=== PATIENT | female | born 1950 | race Caucasian/White ===

== ENCOUNTER 2017-03-16 06:20 | Day surgery (SDC) | payer OTHER, MEDICARE ==
[2017-03-08 17:58] VITALS: BMI 17.5
[2017-03-16] MEDS: CYCLOPENTOLATE 2% OPHTH SOLN 2 ML BOTTLE ONE ×3 (06:50→07:00)
[2017-03-16] MEDS: TROPICAMIDE 1% OPHTH SOLN 15 ML BOTTLE ONE ×3 (06:50→07:00)
[2017-03-16] MEDS: PHENYLEPHRINE 2.5% OPHTH SOLN 15 ML BOTTLE ONE ×3 (06:50→07:00)
[2017-03-16] MEDS: CIPROFLOXACIN 0.3% EYE DROPS 5 ML BOTTLE ONE ×3 (06:50→07:00)
[2017-03-16] MEDS ORDERED: BSS (NA/CA/MG/K) BALANCED SALT SOLUTION OPHTH SOLN 15 ML BOTTLE ONE (07:21)
[2017-03-16] MEDS ORDERED: TETRACAINE 0.5% OPHTH SOLN 2 ML BOTTLE ONE (07:21)
[2017-03-16] MEDS ORDERED: ACETYLCHOLINE 1:100 INTRA-OCUL 20 MG/2 ML KIT ONE (07:22)
[2017-03-16] MEDS ORDERED: CARBACHOL 0.01% INTRA-OCULAR 1.5 ML VIAL ONE (07:22)
[2017-03-16] MEDS ORDERED: LIDOCAINE HCL 2% JELLY 10 ML CARTRIDGE ONE (07:23)
[2017-03-16] MEDS ORDERED: NEO/POLYMYX B SULF/DEXAMETH OPHTHALMIC 5ML BOTTLE ONE (07:23)
[2017-03-16] MEDS ORDERED: LIDOCAINE 1% P/F 10 MG/ML VIAL ONE (07:31)
[2017-03-16] MEDS ORDERED: MIDAZOLAM HCL 2 MG/2 ML SINGLE DOSE VIAL ONE (07:42)
[2017-03-16 14:24] VITALS: TEMP 98.1
[2017-03-16 14:26] VITALS: BP 125/67; PULSE 62
--- NOTE | 2017-03-16 21:49 | OP ---
DATE OF PROCEDURE: 03/16/2017 OPERATIVE PROCEDURE: Lens Phacoemulsification with Posterior Chamber Intraocular Lens Placement Left Eye PREOPERATIVE DIAGNOSIS: Visually Significant Cataract of Left Eye POSTOPERATIVE DIAGNOSIS: Visually Significant Cataract of Left Eye SURGEON: Gera Aaron M.D. ANESTHESIA: MAC PROCEDURE: The patient was brought to the operating room and placed under monitored anesthesia care by Anesthesia. A drop of Tetracaine was then placed over the left eye. The patient was then prepped and draped in the usual sterile manner. A speculum was then placed over the left eye. The eye was then well irrigated with copious amounts of BSS (balanced salt solution). The operating microscope was then moved into position. A paracentesis was performed using a 15 degree blade. At this point 0.5 mL of 1% preservative-free lidocaine was injected into the anterior chamber. Amvisc plus was then injected into the anterior chamber. A clear corneal incision was then formed using a 2.2 mm keratome. A capsulorrhexis was then performed in a continuous circular fashion beginning with a cystotome, completed with an Utratas forceps. Hydrodissection was then performed using BSS on a cannula. The phaco probe was then introduced through the corneal wound and the cataract was removed using the phaco chop technique. Approximately 3 seconds of absolute phaco time was used. The remaining cortex was then removed using irrigation and aspiration with an I/A probe. The capsule was then filled with regular Amvisc and the capsule was noted to be intact. A previously selected foldable posterior chamber intraocular lens was then injected into the capsule through the corneal wound using a lens injector. It was then dialed into position using a Sinskey hook. The Amvisc was then removed using irrigation and aspiration. Miostat was then injected through the paracentesis to constrict the pupil. The paracentesis and corneal wound were then hydrated and noted to be water tight. A drop of Maxitrol was then placed over the eye. The speculum was removed and clear shield was taped over the eye. The patient tolerated the procedure well and there were no surgical complications. The patient was asked to follow up in my office the next day. GERA AARON M.D. [id number]
== END 2017-03-16 09:30 | disposition home or self-care (01) ==
LOC: FASU 06:20
PROVIDERS: ATTEND Ophthalmology
PROC: 08RK3JZ Replacement of Left Lens with Synthetic Substitute, Percutaneous Approach (ICD-10-PCS; principal; 2017-03-16 08:25)
DX: H26.9 Unspecified cataract (principal)

== ENCOUNTER 2017-04-20 07:04 | Day surgery (SDC) | payer OTHER, MEDICARE ==
[2017-04-15 11:37] VITALS: BMI 35.2
[2017-04-20] MEDS: CYCLOPENTOLATE 2% OPHTH SOLN 2 ML BOTTLE ONE ×3 (07:30→07:40)
[2017-04-20] MEDS: CIPROFLOXACIN 0.3% EYE DROPS 5 ML BOTTLE ONE ×3 (07:30→07:40)
[2017-04-20] MEDS: PHENYLEPHRINE 2.5% OPHTH SOLN 15 ML BOTTLE ONE ×3 (07:30→07:40)
[2017-04-20] MEDS: TROPICAMIDE 1% OPHTH SOLN 15 ML BOTTLE ONE ×3 (07:30→07:40)
[2017-04-20] MEDS ORDERED: MIDAZOLAM HCL 2 MG/2 ML SINGLE DOSE VIAL ONE ×2 (08:27→08:58)
--- NOTE | 2017-04-20 09:51 | OP ---
DATE OF OPERATION: 04/20/2017 OPERATIVE PROCEDURE: Lens phacoemulsification with posterior chamber intraocular lens placement, right eye. PREOPERATIVE DIAGNOSIS: Visually significant cataract of right eye. POSTOPERATIVE DIAGNOSIS: Visually significant cataract of right eye. SURGEON: Gera Aaron MD ANESTHESIA: MAC. PROCEDURE: The patient was brought to the operating room and placed under monitored anesthesia care by Anesthesia. A drop of Tetracaine was then placed over the right eye. The patient was then prepped and draped in the usual sterile manner. A speculum was then placed over the right eye. The eye was then well irrigated with copious amounts of BSS (balanced salt solution). The operating microscope was then moved into position. A paracentesis was performed using a 15-degree blade. At this point, 0.5 mL of 1% preservative-free lidocaine was injected into the anterior chamber. Amvisc Plus was then injected into the anterior chamber. A clear corneal incision was then formed using a 2.2-mm keratome. A capsulorrhexis was then performed in a continuous circular fashion beginning with a cystotome completed with an Utratas forceps. Hydrodissection was then performed using BSS on a cannula. The phaco probe was then introduced through the corneal wound and the cataract was removed using the phaco chop technique. Approximately 3 seconds of absolute phaco time was used. The remaining cortex was then removed using irrigation and aspiration with an I/A probe. he capsule was then filled with regular Amvisc and the capsule was noted to be intact. A previously selected foldable posterior chamber intraocular lens was then injected into the capsule through the corneal wound using a lens injector. It was then dialed into position using a Sinskey hook. The Amvisc was then removed using irrigation and aspiration. Miostat was then injected through the paracentesis to constrict the pupil. The paracentesis and corneal wound were then hydrated and noted to be watertight. A drop of Maxitrol was then placed over the eye. The speculum was removed and clear shield was taped over the eye. The patient tolerated the procedure well and there were no surgical complications. The patient was asked to follow up in my office the next day. GERA AARON M.D. [id number]
[2017-04-20] MEDS ORDERED: BSS (NA/CA/MG/K) BALANCED SALT SOLUTION OPHTH SOLN 15 ML BOTTLE ONE (12:14)
[2017-04-20] MEDS ORDERED: CARBACHOL 0.01% INTRA-OCULAR 1.5 ML VIAL ONE (12:14)
[2017-04-20] MEDS ORDERED: TETRACAINE 0.5% OPHTH SOLN 2 ML BOTTLE ONE (12:14)
[2017-04-20] MEDS ORDERED: LIDOCAINE 1% P/F 10 MG/ML VIAL ONE (12:14)
[2017-04-20 13:42] VITALS: TEMP 98
[2017-04-20 13:45] VITALS: BP 131/69; PULSE 66
== END 2017-04-20 10:00 | disposition home or self-care (01) ==
LOC: FASU 07:04
PROVIDERS: ATTEND Ophthalmology
PROC: 08RJ3JZ Replacement of Right Lens with Synthetic Substitute, Percutaneous Approach (ICD-10-PCS; principal; 2017-04-20 09:02)
DX: H26.8 Other specified cataract (principal)

== ENCOUNTER 2019-08-12 23:46 | Inpatient (IN) | payer OTHER, MEDICARE ==
[2019-08-12] MEDS ORDERED: FAMOTIDINE 20 MG/50 ML IVPB 20 MG/50 ML MG IVPB ONE (23:51)
[2019-08-12] MEDS ORDERED: SODIUM CHLORIDE 1,000 ML IV STA (23:51)
[2019-08-12] MEDS ORDERED: ONDANSETRON 4 MG/2 ML VIAL IVPUSH ONE (23:51)
[2019-08-12] MEDS ORDERED: ACETAMINOPHEN 1000 MG/100 ML VIAL (NON FORMULARY) IVPB ONE (23:51)
--- NOTE | 2019-08-12 23:54 | PDOC ---
History of Present Illness - General Chief Complaint: Pain, Acute Stated Complaint: RLQ PAIN Time Seen by Provider: 08/12/19 23:49 History Source: Patient Exam Limitations: No Limitations - History of Present Illness Initial Comments: 08/12/19 23:54 HPI 69 YOF with h/o IBS, depression, glaucoma, arthritis presenting with acute onset of RLQ and RUQ pain x 2-3 hours [employer]OM[employer] tonight, a/w nausea and NBNB emesis x 2-3 episodes. pt describes dull ache in the RLQ. today she had several episodes of loose, nonbloody, brown stools that were relatively formed and c/w her IBS. Pt admits to eating some bagel, and drank ETOH last night. has history of similar left hip pain/LLQ pain, which was attributed to arthritis and SI joint arthritis per her physician and chiropractor last saw her PMD about 1 month ago and had normal workup including basic labs. has also had colonoscopy several years ago, per her report and recollection was unremarkable. Denies fever, chills, chest pain, SOB, palpitation, dizziness, weakness, focal weakness/paresthesias, leg swelling/pain, rash. No sick contacts or travel. No new changes in medications. no known trauma. Allergies: pcn, sulfa, yeast, milk Past Medical History/ IBS, depression, glaucoma, arthritis PSH: hysterectomy Social history: Lives with family. No tobacco, ETOH or drug use. Meds: eye drops, timolol and zoloft Family history: noncontributory PMD: Dr Johnston Review of systems Constitutional: no fevers or chills. No weakness HEENT: no headache or dizziness. No congestion. No visual/hearing disturbances. CVS: no cp or syncope. Resp: no sob. No cough. Gastrointestinal: +abdominal pain, nausea, vomiting, diarrhea. no constipation. no bloody stools Genitourinary: no urinary sx, hematuria. no dysuria, urgency or frequency. MUSCULOSKELETAL: No joint pain and swelling. No neck or back pain. SKIN: no redness or skin changes, no discharge, no rash. No wounds. Hematologic: no easy bruising/bleeding. NEUROLOGIC: No headache, dizziness, LOC or altered mental status. No weakness, numbness or tingling. Psych: no anxiety or depression Allergic/Immunologic: no allergies All other systems reviewed and negative, or as documented in HPI. Physical exam General: Well appearing, awake and alert, NAD. HEENT: NCAT, PERRL, EOMI, clear conjunctiva, anicteric, moist mucus membranes, clear oropharynx, no oral lesions.. Neck: neck supple, FROM Resp: CTAB, normal and even respirations, no respiratory distress CVS: RRR, no murmurs, 2+ peripheral pulses throughout, no peripheral edema Abdomen: soft, nondistended, obese, +RLQ and Right flank TTP, neg hilton's, no rebound or guarding. Back: nontender, normal inspection and ROM, +right CVAT. MSK: no edema, ZIMMERMAN x4, ROM intact. No clubbing or cyanosis. normal bulk and tone. Extremities: no calf tenderness Neuro: alert, oriented appropriately; no focal neurologic deficits Psych: Calm and cooperative Skin: warm and well perfused, cap refill <2 sec, normal color, no rash or skin discoloration. 08/12/19 23:54 08/12/19 23:55 08/13/19 02:52 Past History - Past Medical History Allergies/Adverse Reactions: Allergies Allergy/AdvReac Type Severity Reaction Status Date / Time Penicillins Allergy Swelling Verified 08/12/19 23:52 Sulfa (Sulfonamide Allergy Swelling Verified 08/12/19 23:52 Antibiotics) Yeast Allergy Verified 08/12/19 23:52 milk AdvReac IBS Verified 08/12/19 23:52 Home Medications: Ambulatory Orders Bimatoprost [Lumigan] 1 drop OU DAILY 02/13/16 Sertraline HCl [Zoloft] 100 mg PO DAILY 03/08/17 Timolol 0.5% [Timoptic] 1 ml OU DAILY 08/12/19 Anemia: Yes (long time ago) Asthma: No Cancer: No Cardiac Disorders: No CVA: No COPD: No CHF: No Dementia: No Diabetes: No GI Disorders: No Disorders: No HTN: No Hypercholesterolemia: No Liver Disease: No Seizures: No Thyroid Disease: No - Surgical History Abdominal Surgery: No Appendectomy: No Cardiac Surgery: No Cholecystectomy: No Lung Surgery: No Neurologic Surgery: No Orthopedic Surgery: No - Psycho Social/Smoking Cessation Hx Smoking History: Former smoker Have you smoked in the past 12 months: No If you are a former smoker, when did you quit?: 1978 Hx Alcohol Use: Yes (SOCIAL) Drug/Substance Use Hx: No Substance Use Type: Alcohol Hx Substance Use Treatment: No ED Treatment Course - LABORATORY CBC & Chemistry Diagram: 08/13/19 00:10 08/13/19 00:10 - RADIOLOGY Radiology Studies Ordered: Category Date Time Status ABDOMEN & PELVIS CT WITH CONTR [CT] Stat CT Scan 08/12/19 23:53 Ordered Medical Decision Making - Medical Decision Making 08/12/19 23:59 Vital Signs Temp Pulse Resp BP Pulse Ox 97.8 F 70 18 135/65 96 08/13/19 02:30 08/13/19 02:30 08/13/19 02:30 08/13/19 02:30 08/13/19 02:30 VS reviewed, wnl, +hypertensive initially, 2/2 pain and n/v on repeat, improved VS DDx abdominal pain: Renal colic, biliary colic, metabolic/electrolyte derangements. GERD, PUD, esophageal spasm, pancreatitis, hepatitis, constipation , colitis, gastroenteritis, cholecystitis, UTI, pyelonephritis, ileus, SBO, medication side effect, hernia, appendicitis, diverticulitis, mesenteric ischemia. msk strain, mesenteric adenitis, psoas abscess. Clinically the patient presents with symptomatic ureterolithiasis (kidney stones ). IV pain medications, antiemetics, and IV fluids were given. A CT Abdomen/ Pelvis was obtained for concern for a possible obstructing kidney stone and to rule out other pathologic conditions. CTs scan from imaging on-call reveals incidental left lower lobe nodules, patient made aware and to follow-up as there are no imaging results in our system to compare to. There is mild to moderate right-sided hydronephrosis and perinephric edema with 10 mm proximal UPJ stone as well as a 4 mm distal UVJ stone. no appy. The patient's labs were significant for mild leukocytosis of 12K, normal cr and neg UA for infection, only blood. With pain medication the patient improved significantly. flomax and IVF administered. Given medications zofran, tylenol and IVF with clinical improvement. 08/13/19 01:46 - spoke with environmental air specialist urologist, Dr Cox, discussed case and CT findings, labs, which were remarkable for normal UA with only blood, no infection, preserved Cr function. no fever or systemic features +leukocytosis due to extent of obstruction, presence of 2 obstructing stones, on at 10mm at the right UPJ, <5% of passing on its own may require stenting, urologic intervention. admission for pain control, hydration, close monitoring, possible intervention depending on conservative management and allowing the UVJ stone to pass no beds at [facility] at this time, will admit Margarette and necessitate transfer when bed available, since OR capabilities with urologist would be more available and able to be accommodated 08/13/19 02:37 s/o to MAGAN Chamorro with the case, admitting to Dr Paulino, overnight hospitalist. pt made aware of impression and plan, agreeable. 08/13/19 02:53 08/13/19 02:54 Discharge - Discharge Information Problems reviewed: Yes Clinical Impression/Diagnosis: Obstruction of right ureteropelvic junction due to stone, Calculus of ureterovesical junction (UVJ) Hydronephrosis Qualifiers: Hydronephrosis type: unspecified Qualified Code(s): N13.30 - Unspecified hydronephrosis Condition: Stable - Admission Yes - Follow up/Referral - Patient Discharge Instructions - Post Discharge Activity
[2019-08-13] MEDS ORDERED: FAMOTIDINE 20 MG/50 ML IVPB 20 MG/50 ML MG IVPB ONE (00:40)
[2019-08-13] MEDS ORDERED: ONDANSETRON 4 MG/2 ML VIAL ONE (00:40)
[2019-08-13] MEDS ORDERED: ACETAMINOPHEN INJECTION 100 ML IVPB ONE (00:40)
[2019-08-13 01:00] LABS: BASO % 0.9 % (0-2.0); EOS % 1.5 % (0-4.5); HEMATOCRIT 40.4 % (32.4-45.2); HEMOGLOBIN 13.6 GM/dL (10.7-15.3); LYMPH % 13.8 % (8-40); MCH 28.9 pg (25.7-33.7); MCHC 33.6 g/dl (32.0-36.0); MEAN CELL VOLUME 86.1 fl (80-96); MONO % 4.6 % (3.8-10.2); NEUT % 79.2 % (42.8-82.8); PLATELET COUNT 203 K/MM3 (134-434); RBC 4.69 M/mm3 (3.60-5.2); RDW 14.5 % (11.6-15.6); WHITE BLOOD COUNT 11.9 K/mm3 (4.0-10.0)
[2019-08-13 01:13] LABS: EPI CELLS 1.7 /HPF (0-5/HPF); HYALINE CASTS 3 /lpf (0-8); URINE APPEARANCE CLEAR; URINE BACTERIA 2.7 /hpf (NEGATIVE); URINE BILIRUBIN NEGATIVE (NEGATIVE); URINE COLOR YELLOW; URINE GLUCOSE (UA) NEGATIVE (NEGATIVE); URINE KETONE NEGATIVE (NEGATIVE); URINE LEUK ESTERASE NEGATIVE (NEGATIVE); URINE NITRITE NEGATIVE (NEGATIVE); URINE PROTEIN TRACE (NEGATIVE); URINE RBC 175 /hpf (0-4); URINE UROBILINOGEN 0.2 mg/dL (0.2-1.0); URINE WBC 3 /hpf (0-5)
[2019-08-13] MEDS ORDERED: METOCLOPRAMIDE HCL INJECTION 10 MG/2 ML VIAL IVPUSH ONE (01:25)
[2019-08-13] MEDS ORDERED: METOCLOPRAMIDE HCL INJECTION 10 MG/2 ML VIAL ONE (01:26)
[2019-08-13 01:36] LABS: BILIRUBIN,TOTAL 0.3 mg/dL (0.2-1); BLOOD UREA NITROGEN 34.2 mg/dL (7-18); POTASSIUM 3.8 mmol/L (3.5-5.1); TOT PROT 7.3 g/dl (6.4-8.2)
[2019-08-13] MEDS ORDERED: TAMSULOSIN HCL 0.4 MG CAP PO ONE (01:48)
[2019-08-13] MEDS ORDERED: TAMSULOSIN HCL 0.4 MG CAP ONE (01:53)
[2019-08-13] MEDS ORDERED: ONDANSETRON 4 MG/2 ML VIAL IVPUSH PRN (02:42)
[2019-08-13] MEDS ORDERED: SODIUM CHLORIDE 1,000 ML IV SCH (02:45)
[2019-08-13 04:05] VITALS: BMI 35.9
--- NOTE | 2019-08-13 06:13 | HP ---
CHIEF COMPLAINT: Right flank and RLQ abdominal pain PCP: Dr. Curtis Johnston HISTORY OF PRESENT ILLNESS: 69 year-old female with a PMH significant for IBS, anxiety, glaucoma, and arthritis. Presents to the ED with acute onset of RIGHT flank and RIGHT lower quadrant abdominal pain x 2-3 hours with associated nausea and vomiting. Patient states she was diagnosed with a kidney stone about 8 years ago which passed on its own. About two months ago she had LEFT flank pain and noticed gravel in her urine. No further urology workup was undertaken at that time. Denies fever, sweats, chills. Denies dysuria, hematuria, urgency, frequency. At the time of this admission interview, pain has resolved. ER course was notable for: (1) WBC 11.9 (2) CTAP: 10 x 7 mm proximal right ureteral calculus; moderate hydronephrosis; 4mm right UVJ calculus Recent Travel: No PAST MEDICAL HISTORY: Irritable bowel syndrome Anxiety Glaucoma Arthritis PAST SURGICAL HISTORY: DORA-SBO 2000 Social History: lives with Smoking: no Alcohol: occasional Drugs: no Family history: Mother 46 of ovarian cancer; father 94 cardiac valve problem; two half -siblings no contact; 2 children a&w Allergies Penicillins Allergy (Verified 08/12/19 23:52) Swelling Sulfa (Sulfonamide Antibiotics) Allergy (Verified 08/12/19 23:52) Swelling Yeast Allergy (Verified 08/12/19 23:52) milk Adverse Reaction (Verified 08/12/19 23:52) IBS HOME MEDICATIONS: Home Medications Medication Instructions Recorded Bimatoprost [Lumigan] 1 drop OU DAILY 02/13/16 Sertraline HCl [Zoloft] 100 mg PO DAILY 03/08/17 Timolol 0.5% [Timoptic] 1 ml OU DAILY 08/12/19 REVIEW OF SYSTEMS CONSTITUTIONAL: Absent: fever, chills, diaphoresis, generalized weakness, malaise, loss of appetite, weight change HEENT: Absent: rhinorrhea, nasal congestion, throat pain, throat swelling, difficulty swallowing, mouth swelling, ear pain, eye pain, visual changes CARDIOVASCULAR: Absent: chest pain, syncope, palpitations, irregular heart rate, lightheadedness , peripheral edema RESPIRATORY: Absent: cough, shortness of breath, dyspnea with exertion, orthopnea, wheezing, stridor, hemoptysis GASTROINTESTINAL: Absent: abdominal pain, abdominal distension, nausea, vomiting, diarrhea, constipation, melena, hematochezia GENITOURINARY: +right flank and RLQ pain Absent: dysuria, frequency, urgency, hesitancy, hematuria, genital pain MUSCULOSKELETAL: Absent: myalgia, arthralgia, joint swelling, back pain, neck pain SKIN: Absent: rash, itching, pallor HEMATOLOGIC/IMMUNOLOGIC: Absent: easy bleeding, easy bruising, lymphadenopathy, frequent infections ENDOCRINE: Absent: unexplained weight gain, unexplained weight loss, heat intolerance, cold intolerance NEUROLOGIC: Absent: headache, focal weakness or paresthesias, dizziness, unsteady gait, seizure, mental status changes, bladder or bowel incontinence PSYCHIATRIC: Absent: anxiety, depression, suicidal or homicidal ideation, hallucinations. PHYSICAL EXAMINATION Vital Signs - 24 hr 08/13/19 08/13/19 08/13/19 00:04 02:30 02:51 Temperature 98.1 F 97.8 F 97.8 F Pulse Rate 70 Pulse Rate [ 70 Left] Respiratory 16 18 18 Rate Blood Pressure 172/98 H Blood Pressure 135/65 [Right] O2 Sat by Pulse 98 96 96 Oximetry (%) GENERAL: Awake, alert, and fully oriented, in no acute distress. HEAD: Normal with no signs of trauma. EYES: Pupils equal, round and reactive to light, extraocular movements intact, sclera anicteric, conjunctiva clear. LUNGS: Breath sounds equal, clear to auscultation bilaterally. No wheezes, and no crackles. No accessory muscle use. HEART: Regular rate and rhythm, normal S1 and S2 ABDOMEN: Soft, nontender, not distended, normoactive bowel sounds, no guarding, no rebound tenderness MUSCULOSKELETAL: Normal range of motion at all joints. No bony deformities or tenderness. Mild right CVA tenderness. UPPER EXTREMITIES: 2+ pulses, warm, well-perfused. No cyanosis. No clubbing. No peripheral edema. LOWER EXTREMITIES: 2+ pulses, warm, well-perfused. No calf tenderness. No peripheral edema. NEUROLOGICAL: Cranial nerves II-XII intact. Normal speech. Laboratory Results - last 24 hr 08/13/19 08/13/19 08/13/19 00:10 00:10 00:10 WBC 11.9 H RBC 4.69 Hgb 13.6 Hct 40.4 MCV 86.1 MCH 28.9 MCHC 33.6 RDW 14.5 Plt Count 203 MPV 9.0 Absolute Neuts (auto) 9.5 H Neutrophils % 79.2 Lymphocytes % 13.8 Monocytes % 4.6 Eosinophils % 1.5 Basophils % 0.9 Nucleated RBC % 0 Sodium 141 Potassium 3.8 Chloride 107 Carbon Dioxide 25 Anion Gap 9 BUN 34.2 H Creatinine 1.0 Est GFR (CKD-EPI)AfAm 66.10 Est GFR (CKD-EPI)NonAf 57.03 Random Glucose 133 H Calcium 9.0 Total Bilirubin 0.3 AST 20 ALT 20 Alkaline Phosphatase 74 Total Protein 7.3 Albumin 4.0 Lipase 121 Cancelled Urine Color Urine Appearance Urine pH Ur Specific [place] Urine Protein Urine Glucose (UA) Urine Ketones Urine Blood Urine Nitrite Urine Bilirubin Urine Urobilinogen Ur Leukocyte Esterase Urine WBC (Auto) Urine RBC (Auto) Urine Casts (Auto) U Epithel Cells (Auto) Urine Bacteria (Auto) 08/13/19 00:10 WBC RBC Hgb Hct MCV MCH MCHC RDW Plt Count MPV Absolute Neuts (auto) Neutrophils % Lymphocytes % Monocytes % Eosinophils % Basophils % Nucleated RBC % Sodium Potassium Chloride Carbon Dioxide Anion Gap BUN Creatinine Est GFR (CKD-EPI)AfAm Est GFR (CKD-EPI)NonAf Random Glucose Calcium Total Bilirubin AST ALT Alkaline Phosphatase Total Protein Albumin Lipase Urine Color Yellow Urine Appearance Clear Urine pH 5.0 Ur Specific [place] 1.023 Urine Protein Trace Urine Glucose (UA) Negative Urine Ketones Negative Urine Blood 3+ H Urine Nitrite Negative Urine Bilirubin Negative Urine Urobilinogen 0.2 Ur Leukocyte Esterase Negative Urine WBC (Auto) 3 Urine RBC (Auto) 175 Urine Casts (Auto) 3 U Epithel Cells (Auto) 1.7 Urine Bacteria (Auto) 2.7 ASSESSMENT/PLAN 69 year-old female with a PMH significant for IBS, anxiety, glaucoma, and arthritis. Admitted for two right ureteral stones and moderate right-sided hydronephrosis. Right ureteral calculus x 2 --one is 10 x 7mm, one is 4mm --strain urine --IV fluids --NPO after midnight --plan is to OR tomorrow with Dr. Wu Moderate right-sided hydronephrosis --Cr 0.8, monitor renal function IBS --not on meds Anxiety --continue Zoloft Glaucoma --continue home eye drops FEN Fluids: NS @100mL/hr Electrolytes: replete as indicated Nutrition: regular; NPO after midnight DVT prophylaxis: SCDs, oob, ambulation Visit type - Emergency Visit Emergency Visit: Yes ED Registration Date: 08/13/19 Care time: The patient presented to the Emergency Department on the above date and was hospitalized for further evaluation of their emergent condition. - New Patient This patient is new to me today: Yes Date on this admission: 08/13/19 - Critical Care Critical Care patient: No
[2019-08-13] MEDS ORDERED: ACETAMINOPHEN 1000 MG/100 ML VIAL (NON FORMULARY) IVPB PRN ×2 (07:00→17:45)
[2019-08-13 09:04] LABS: BASO % 0.7 % (0-2.0); EOS % 0.1 % (0-4.5); HEMATOCRIT 37.3 % (32.4-45.2); HEMOGLOBIN 12.4 GM/dl (10.7-15.3); LYMPH % 13.7 % (8-40); MCH 28.7 pg (25.7-33.7); MCHC 33.3 g/dl (32.0-36.0); MEAN CELL VOLUME 86.2 fl (80-96); NEUT % 81.5 % (42.8-82.8); PLATELET COUNT 197 K/MM3 (134-434); RBC 4.33 M/mm3 (3.60-5.2); RDW 13.4 % (11.6-15.6); WHITE BLOOD COUNT 8.4 K/mm3 (4.0-10.8)
[2019-08-13 09:34] LABS: CALCIUM 8.7 mg/dl (8.5-10); CREATININE 0.8 mg/dl (0.55-1.3); POTASSIUM 3.8 mmol/L (3.5-5.1)
[2019-08-13] MEDS ORDERED: TIMOLOL 0.5% OU SCH (10:00)
[2019-08-13] MEDS ORDERED: TIMOLOL 0.5% OPHTHALMIC SOL 5 ML BOTTLE OU SCH (10:00)
[2019-08-13] MEDS ORDERED: SERTRALINE HCL 50 MG TABLET (FP) PO SCH (10:00)
[2019-08-13] MEDS ORDERED: PATIENT'S OWN MEDICATION (NON-FORMULARY) (Sertraline Hcl [Zoloft] 100 MG) PO SCH (10:00)
[2019-08-13] MEDS ORDERED: PATIENT'S OWN MEDICATION (NON-FORMULARY) (Bimatoprost [Lumigan] 1 DROP) OU SCH (10:00)
--- NOTE | 2019-08-13 10:26 | EKG ---
Test Reason : Blood Pressure : / mmHG Vent. Rate : 072 BPM Atrial Rate : 072 BPM P-R Int : 156 ms QRS Dur : 094 ms QT Int : 444 ms P-R-T Axes : 031 -06 041 degrees QTc Int : 486 ms POOR DATA QUALITY, INTERPRETATION MAY BE ADVERSELY AFFECTED NORMAL SINUS RHYTHM NORMAL ECG WHEN COMPARED WITH ECG OF 10-MAR-2001 09:19, NO SIGNIFICANT CHANGE WAS FOUND Confirmed by Jerica Rodrigues ([id number]) on 08/13/2019 10:26:23 AM Referred By: TARIQ VITAL Confirmed By:Jerica Rodrigues
[2019-08-13] MEDS: SODIUM CHLORIDE 1,000 ML IV SCH (18:02)
[2019-08-13] MEDS: TIMOLOL 0.5% OPHTHALMIC SOL 5 ML BOTTLE OU SCH (21:36)
[2019-08-13] MEDS ORDERED: LATANOPROST 0.005% OPHTH SOLN 2.5ML BOTTLE OU SCH ×2 (22:00)
[2019-08-14] MEDS: ONDANSETRON 4 MG/2 ML VIAL IVPUSH PRN ×2 (07:45→14:35)
[2019-08-14] MEDS ORDERED: TAMSULOSIN HCL 0.4 MG CAP PO SCH ×2 (08:30)
[2019-08-14] MEDS: TIMOLOL 0.5% OPHTHALMIC SOL 5 ML BOTTLE OU SCH ×2 (09:45→21:00)
[2019-08-14] MEDS ORDERED: SERTRALINE HCL 50 MG TABLET (FP) PO SCH (10:00)
--- NOTE | 2019-08-14 11:41 | PN ---
Physical Exam: SUBJECTIVE: denies pain or discomfort. for OR today with urology OBJECTIVE: Patient is a 69 year-old female with a PMH significant for IBS, anxiety, glaucoma, and arthritis. Presents to the ED with acute onset of RIGHT flank and RIGHT lower quadrant abdominal pain x 2-3 hours with associated nausea and vomiting. Patient states she was diagnosed with a kidney stone about 8 years ago which passed on its own. About two months ago she had LEFT flank pain and noticed gravel in her urine. No further urology workup was undertaken at that time. Denies fever, sweats, chills. Denies dysuria, hematuria, urgency, frequency. imaging: CTAP: 10 x 7 mm proximal right ureteral calculus; moderate hydronephrosis; 4mm right UVJ calculus Period Temp Pulse Resp BP Sys/Cisneros Pulse Ox Last 24 Hr 97.6 F-98.8 F 58-74 16-20 118-139/58-78 95-98 GENERAL: The patient is awake, alert, and fully oriented, in no acute distress. HEAD: Normal with no signs of trauma. EYES: PERRL, extraocular movements intact, sclera anicteric, conjunctiva clear. No ptosis. ENT: Ears normal, nares patent, oropharynx clear without exudates, moist mucous membranes. NECK: Trachea midline, full range of motion, supple. LUNGS: Breath sounds equal, clear to auscultation bilaterally, no wheezes, no crackles, no accessory muscle use. HEART: Regular rate and rhythm, ABDOMEN: Soft, nontender, nondistended, normoactive bowel sounds EXTREMITIES: no edema. NEUROLOGICAL: Normal speech, gait not observed. PSYCH: Normal mood, normal affect. SKIN: Warm, dry, normal turgor, no rashes or lesions noted Active Medications Generic Name Dose Route Start Last Admin Trade Name Freq PRN Reason Stop Dose Admin Acetaminophen 1,000 mg 08/13/19 17:45 Ofirmev Injection - IVPB Q6H PRN PAIN LEVEL 6-10 Sodium Chloride 1,000 mls @ 100 mls/hr 08/13/19 17:45 08/13/19 18:02 Normal Saline - IV 100 mls/hr ASDIR YVES Administration Latanoprost 1 drop 08/13/19 22:00 08/13/19 21:36 Xalatan 0.005% Eye Drops - OU Not Given HS YVES Ondansetron HCl 4 mg 08/13/19 17:45 08/14/19 07:45 Zofran Injection IVPUSH 4 mg Q6H PRN Administration NAUSEA AND/OR VOMITING Sertraline HCl 100 mg 08/14/19 10:00 08/14/19 09:46 Zoloft - PO 100 mg DAILY YVES Administration Tamsulosin HCl 0.4 mg 08/14/19 08:30 08/14/19 07:45 Flomax - PO 0.4 mg DAILY@0830 YVES Administration Timolol Maleate 1 drop 08/13/19 22:00 08/14/19 09:45 Timoptic 0.5% OU Not Given BID YVES ASSESSMENT/PLAN: Problem List - Problems (1) Hydronephrosis Assessment/Plan: Moderate right-sided hydronephrosis, monitor renal function for OR today with urology Code(s): N13.30 - UNSPECIFIED HYDRONEPHROSIS Qualifiers: Hydronephrosis type: unspecified Qualified Code(s): N13.30 - Unspecified hydronephrosis (2) Calculus of ureterovesical junction (UVJ) Assessment/Plan: for OR for stent placement Code(s): N20.1 - CALCULUS OF URETER (3) Obstruction of right ureteropelvic junction due to stone Assessment/Plan: Right ureteral calculus x 2 IVF, plan is for OR today with urology Code(s): N20.1 - CALCULUS OF URETER (4) Prophylactic measure Assessment/Plan: fen continue ivf hydration full code Code(s): Z29.9 - ENCOUNTER FOR PROPHYLACTIC MEASURES, UNSPECIFIED Visit type - Emergency Visit Emergency Visit: Yes ED Registration Date: 08/13/19 Care time: The patient presented to the Emergency Department on the above date and was hospitalized for further evaluation of their emergent condition. - New Patient This patient is new to me today: Yes Date on this admission: 08/14/19 - Critical Care Critical Care patient: No - Discharge Referral Referred to [facility] No
--- NOTE | 2019-08-14 13:38 | CON.GU ---
Consult Consult Specialty:: Referred by:: Medicine Reason for Consultation:: right ureteral calculus - History of Present Illness Chief Complaint: right ureteral calculus History of Present Illness: 69 year old woman with several days of right flank pain. Has a stone years ago which passed. no other history. No infection or signs of fever. CT with a 7x10 mm upper right ureteral stone and a 4mm right UVJ stone with moderate hydronephrosis - History Source History Provided By: Patient Limitations to Obtaining History: No Limitations - Past Medical History Renal/: Yes: Renal Calculi - Alcohol/Substance Use Hx Alcohol Use: Yes (SOCIAL) - Smoking History Smoking history: Former smoker Have you smoked in the past 12 months: No If you are a former smoker, when did you quit?: 1978 Home Medications - Allergies Allergies/Adverse Reactions: Allergies Allergy/AdvReac Type Severity Reaction Status Date / Time Penicillins Allergy Swelling Verified 08/12/19 23:52 Sulfa (Sulfonamide Allergy Swelling Verified 08/12/19 23:52 Antibiotics) Yeast Allergy Verified 08/12/19 23:52 milk AdvReac IBS Verified 08/12/19 23:52 - Home Medications Home Medications: Ambulatory Orders Bimatoprost [Lumigan] 1 drop OU DAILY 02/13/16 Sertraline HCl [Zoloft] 100 mg PO DAILY 03/08/17 Timolol 0.5% [Timoptic] 1 ml OU DAILY 08/12/19 Review of Systems - Review of Systems Constitutional: reports: No Symptoms Genitourinary: reports: Flank Pain Physical Exam- Vital Signs: Vital Signs Temperature 97.6 F 08/14/19 08:45 Pulse Rate 66 08/14/19 08:45 Respiratory Rate 17 08/14/19 09:00 Blood Pressure 129/78 08/14/19 08:45 O2 Sat by Pulse Oximetry (%) 95 08/14/19 10:14 Renal/: Yes: CVA Tenderness - Right. No: CVA Tenderness - Left, Mason Present , Hematuria, Incontinence Labs: CBC, BMP 08/13/19 06:00 08/13/19 06:00 Imaging - Results Cat Scan: Report Reviewed Problem List - Problems (1) Calculus of ureterovesical junction (UVJ) Assessment/Plan: for ureteroscopic laser litho and stent on the right side this afternoon. Code(s): N20.1 - CALCULUS OF URETER (2) Hydronephrosis Code(s): N13.30 - UNSPECIFIED HYDRONEPHROSIS Qualifiers: Hydronephrosis type: unspecified Qualified Code(s): N13.30 - Unspecified hydronephrosis (3) Obstruction of right ureteropelvic junction due to stone Code(s): N20.1 - CALCULUS OF URETER
[2019-08-14] MEDS ORDERED: ceFAZolin 2 GRAM PREMIX BAG IVPB SCH (15:00)
[2019-08-14] MEDS ORDERED: MIDAZOLAM HCL 2 MG/2 ML SINGLE DOSE VIAL ONE (17:15)
[2019-08-14] MEDS ORDERED: PROPOFOL 20 ML ONE (17:15)
[2019-08-14] MEDS ORDERED: CLINDAMYCIN 600 MG PREMIX BAG IVPB ONE (17:25)
[2019-08-14 17:26] LABS: BASO % 1.8 % (0-2.0); HEMATOCRIT 38.8 % (32.4-45.2); LYMPH % 30.4 % (8-40); MCH 29.3 pg (25.7-33.7); MCHC 33.6 g/dl (32.0-36.0); MEAN CELL VOLUME 87.2 fl (80-96); MEAN PLT VOLUME 8.7 fl (7.5-11.1); MONO % 6.8 % (3.8-10.2); PLATELET COUNT 166 K/MM3 (134-434); RBC 4.45 M/mm3 (3.60-5.2); RDW 14.5 % (11.6-15.6); WHITE BLOOD COUNT 5.2 K/mm3 (4.0-10.0)
[2019-08-14] MEDS ORDERED: CLINDAMYCIN PHOSPHATE 600 MG/4 ML VIAL ONE (17:26)
[2019-08-14] MEDS ORDERED: IOHEXOL 300 MG/ML INFUS..BTL IV ONE (17:31)
[2019-08-14 17:34] LABS: INR 0.97 (0.83-1.09); PROTHROMBIN TIME (PATIENT) 11.4 SEC (9.7-13.0)
[2019-08-14 17:59] LABS: ALBUMIN 3.7 g/dl (3.4-5.0); BILIRUBIN,TOTAL 0.8 mg/dL (0.2-1); BLOOD UREA NITROGEN 11.5 mg/dL (7-18); CALCIUM 8.6 mg/dL (8.5-10.1); CREATININE 0.7 mg/dL (0.55-1.3); MAGNESIUM 2.1 mg/dL (1.8-2.4); POTASSIUM 3.6 mmol/L (3.5-5.1); TOT PROT 6.8 g/dl (6.4-8.2)
[2019-08-14] MEDS ORDERED: ONDANSETRON 4 MG/2 ML VIAL IVPUSH PRN ×2 (18:26→18:43)
[2019-08-14] MEDS ORDERED: ACETAMINOPHEN 1000 MG/100 ML VIAL (NON FORMULARY) IVPB ONE (18:27)
[2019-08-14] MEDS ORDERED: LACTATED RINGERS SOLUTION 1,000 ML IV SCH (18:30)
[2019-08-14] MEDS ORDERED: ACETAMINOPHEN 1000 MG/100 ML VIAL (NON FORMULARY) IVPB PRN (18:43)
[2019-08-14] MEDS ORDERED: SODIUM CHLORIDE 1,000 ML IV SCH (18:43)
--- NOTE | 2019-08-14 19:34 | OP ---
DATE OF OPERATION: 08/14/2019 PREOPERATIVE DIAGNOSIS: Right ureteral calculi, hydronephrosis, right renal colic. POSTOPERATIVE DIAGNOSIS: Right ureteral calculi, hydronephrosis, right renal colic. PROCEDURE: Right ureteroscopy, laser lithotripsy, retrograde pyelogram and right ureteral stent placement. ANESTHESIA: General. ANESTHESIOLOGIST: Ever Hale MD. FINDINGS: A stone in the distal right ureter. The 2nd calcification appears to be outside of the ureter. SPECIMENS: No specimens. DRAINS: A 6 x 22 Double J ureteral stent. ESTIMATED BLOOD LOSS: None. PREOPERATIVE INDICATION: The patient is a 69-year-old female, history of stones in the past that she passed on her own. She comes with right-sided pain. CT reveals a 4-mm UVJ stone on the right and appears to be -mm UPJ stone on the right with mild hydronephrosis. DESCRIPTION OF PROCEDURE: Patient was brought to the OR, placed on the table in the supine position, given general anesthesia and IV antibiotics, and placed in the modified lithotomy position. The groin was prepped and draped sterilely. Cystoscopy was performed. The bladder appeared to be normal. No tumors or stones were seen. UOs were visualized. The right UO wire was passed up into the right kidney with fluoroscopic guidance. A 10-Chinese catheter used to dilate distal right ureter. A semirigid ureteroscope was passed into distal ureter, the stone was visualized, and was broken up with a holmium laser fiber, and the pieces were flushed out. The remainder of the ureter did not appear to have any stones. A flexible ureteroscope was then used to explore the calyces of the right kidney, and no other stones were seen. Retrograde pyelograms were performed again finding no filling defects. What appeared to be the other larger calcification was seen on fluoroscopy but clearly was outside of the ureter. No evidence of extravasation was seen. The bladder was emptied. The patient was woken up. IZABELLA NELSON M.D. [id number]
[2019-08-14] MEDS: CLINDAMYCIN 600MG PREMIX IVPB 600 MG/50 ML BAG IVPB SCH (20:58)
[2019-08-14] MEDS ORDERED: LATANOPROST 0.005% OPHTH SOLN 2.5ML BOTTLE OU SCH (22:00)
[2019-08-15] MEDS: CLINDAMYCIN 600MG PREMIX IVPB 600 MG/50 ML BAG IVPB SCH ×2 (02:00→08:36)
[2019-08-15] MEDS: SODIUM CHLORIDE 1,000 ML IV SCH (07:33)
[2019-08-15] MEDS ORDERED: TAMSULOSIN HCL 0.4 MG CAP PO SCH (08:30)
[2019-08-15 09:16] LABS: BASO % 0.9 % (0-2.0); EOS % 2.7 % (0-4.5); HEMATOCRIT 35.2 % (32.4-45.2); HEMOGLOBIN 11.9 GM/dL (10.7-15.3); LYMPH % 26.7 % (8-40); MCH 28.9 pg (25.7-33.7); MCHC 33.7 g/dl (32.0-36.0); MEAN CELL VOLUME 85.8 fl (80-96); MEAN PLT VOLUME 8.7 fl (7.5-11.1); MONO % 8.4 % (3.8-10.2); NEUT % 61.3 % (42.8-82.8); PLATELET COUNT 149 K/MM3 (134-434); RBC 4.11 M/mm3 (3.60-5.2); RDW 14.4 % (11.6-15.6); WHITE BLOOD COUNT 5.2 K/mm3 (4.0-10.0)
[2019-08-15 09:45] LABS: ALBUMIN 3.2 g/dl (3.4-5.0); BILIRUBIN,TOTAL 0.7 mg/dL (0.2-1); BLOOD UREA NITROGEN 12.9 mg/dL (7-18); CALCIUM 8.1 mg/dL (8.5-10.1); CREATININE 0.8 mg/dL (0.55-1.3); MAGNESIUM 2.1 mg/dL (1.8-2.4); POTASSIUM 3.2 mmol/L (3.5-5.1)
[2019-08-15] MEDS: TIMOLOL 0.5% OPHTHALMIC SOL 5 ML BOTTLE OU SCH (09:49)
[2019-08-15 09:57] VITALS: BP 127/74; PULSE 64; TEMP 98.5
[2019-08-15] MEDS ORDERED: SERTRALINE HCL 50 MG TABLET (FP) PO SCH (10:00)
--- NOTE | 2019-08-15 11:22 | PN ---
Progress Note (short form) - Note Progress Note: Afebrile feels wells discharge home follow up with Dr. Elliott [phone] within two weeks for stent removal Problem List - Problems (1) Calculus of ureterovesical junction (UVJ) Code(s): N20.1 - CALCULUS OF URETER (2) Hydronephrosis Code(s): N13.30 - UNSPECIFIED HYDRONEPHROSIS Qualifiers: Hydronephrosis type: unspecified Qualified Code(s): N13.30 - Unspecified hydronephrosis (3) Obstruction of right ureteropelvic junction due to stone Code(s): N20.1 - CALCULUS OF URETER
[2019-08-15] MEDS ORDERED: POTASSIUM CHLORIDE TABS 20 MEQ TABLET.ER (FP) PO ONE (11:30)
--- NOTE | 2019-08-15 11:40 | DS ---
Physical Exam: SUBJECTIVE: Patient seen and examined. feels well, denies any pain or discomfort. she agrees to discharge with outpatient follow up with urology. OBJECTIVE: Patient is a 69 year-old female with a PMH significant for IBS, anxiety, glaucoma, and arthritis. Presents to the [facility] with acute onset of RIGHT flank and RIGHT lower quadrant abdominal pain x 2-3 hours with associated nausea and vomiting. Patient states she was diagnosed with a kidney stone about 8 years ago which passed on its own. About two months ago she had LEFT flank pain and noticed gravel in her urine. No further urology workup was undertaken at that time. Patient is s/p ureteroscopic laser lithotripsy with stent placement on 2019. She is now voiding freely without any discomfort or pain. She agrees to follow up with Dr. Elliott within two weeks for stent removal. imaging: CTAP: 10 x 7 mm proximal right ureteral calculus; moderate hydronephrosis; 4mm right UVJ calculus Vital Signs Period Temp Pulse Resp BP Sys/Cisneros Pulse Ox Last 24 Hr 97.8 F-98.5 F 64-93 12-20 123-160/66-902 96-100 PHYSICAL EXAM GENERAL: The patient is awake, alert, and fully oriented, in no acute distress. HEAD: Normal with no signs of trauma. EYES: PERRL, extraocular movements intact, sclera anicteric, conjunctiva clear. No ptosis. ENT: Ears normal, nares patent, oropharynx clear without exudates, moist mucous membranes. NECK: Trachea midline, full range of motion, supple. LUNGS: Breath sounds equal, clear to auscultation bilaterally, no wheezes, no crackles, no accessory muscle use. HEART: Regular rate and rhythm, ABDOMEN: Soft, nontender, nondistended, normoactive bowel sounds EXTREMITIES: no edema. NEUROLOGICAL: Normal speech, gait not observed. PSYCH: Normal mood, normal affect. SKIN: Warm, dry, normal turgor, no rashes or lesions noted LABS Laboratory Results - last 24 hr 08/14/19 08/14/19 08/14/19 15:20 15:20 15:20 WBC 5.2 RBC 4.45 Hgb 13.0 Hct 38.8 MCV 87.2 MCH 29.3 MCHC 33.6 RDW 14.5 Plt Count 166 MPV 8.7 Absolute Neuts (auto) 3.1 Neutrophils % 59.0 D Lymphocytes % 30.4 D Monocytes % 6.8 Eosinophils % 2.0 Basophils % 1.8 Nucleated RBC % 0 PT with INR 11.40 INR 0.97 Sodium 142 Potassium 3.6 Chloride 107 Carbon Dioxide 29 Anion Gap 6 L BUN 11.5 Creatinine 0.7 Est GFR (CKD-EPI)AfAm 101.74 Est GFR (CKD-EPI)NonAf 87.78 Random Glucose 91 Calcium 8.6 Magnesium 2.1 Total Bilirubin 0.8 AST 11 L ALT 19 Alkaline Phosphatase 58 Total Protein 6.8 Albumin 3.7 08/15/19 08/15/19 07:37 07:37 WBC 5.2 RBC 4.11 Hgb 11.9 Hct 35.2 MCV 85.8 MCH 28.9 MCHC 33.7 RDW 14.4 Plt Count 149 MPV 8.7 Absolute Neuts (auto) 3.2 Neutrophils % 61.3 Lymphocytes % 26.7 Monocytes % 8.4 Eosinophils % 2.7 Basophils % 0.9 Nucleated RBC % 0 PT with INR INR Sodium 141 Potassium 3.2 L Chloride 104 Carbon Dioxide 30 Anion Gap 7 L BUN 12.9 Creatinine 0.8 Est GFR (CKD-EPI)AfAm 86.57 Est GFR (CKD-EPI)NonAf 74.70 Random Glucose 90 Calcium 8.1 L Magnesium 2.1 Total Bilirubin 0.7 AST 10 L ALT 16 Alkaline Phosphatase 51 Total Protein 6.0 L Albumin 3.2 L HOSPITAL COURSE: Date of Admission:08/13/19 Date of Discharge: 08/15/19 Minutes to complete discharge: 45 Discharge Summary Problems reviewed: Yes Reason For Visit: RLQ PAIN Current Active Problems Calculus of ureterovesical junction (UVJ) (Acute) Hydronephrosis (Acute) Obstruction of right ureteropelvic junction due to stone (Acute) Prophylactic measure (Acute) Condition: Stable - Instructions Diet, Activity, Other Instructions: Mrs Rosario: You were admitted at [facility] and on 08/24/2019 you had a ureteroscopic laser lithotripsy with stent placement. Please follow up with Dr. Elliott [phone] within two weeks for stent removal. thank you for allowing us to care for you. New medications Flomax 0.4mg once per day For pain, you can take Tylenol 650mg every 6 hours not to exceed 4000mg per day. Thank you for allowing us to care for you. Referrals: Jesus Elliott MD [Staff Physician] - Disposition: HOME - Home Medications Comprehensive Discharge Medication List: Ambulatory Orders Bimatoprost [Lumigan] 1 drop OU DAILY 02/13/16 Sertraline HCl [Zoloft] 100 mg PO DAILY 03/08/17 Timolol 0.5% [Timoptic] 1 ml OU DAILY 08/12/19 Tamsulosin HCl [Flomax -] 0.4 mg PO DAILY@0830 #60 cap.er.24h 08/15/19 Problem List - Problems (1) Hydronephrosis Assessment/Plan: Moderate right-sided hydronephrosis, s/p stent placement Code(s): N13.30 - UNSPECIFIED HYDRONEPHROSIS Qualifiers: Hydronephrosis type: unspecified Qualified Code(s): N13.30 - Unspecified hydronephrosis (2) Calculus of ureterovesical junction (UVJ) Code(s): N20.1 - CALCULUS OF URETER (3) Obstruction of right ureteropelvic junction due to stone Assessment/Plan: Code(s): N20.1 - CALCULUS OF URETER (4) Prophylactic measure Assessment/Plan: Code(s): Z29.9 - ENCOUNTER FOR PROPHYLACTIC MEASURES, UNSPECIFIED This patient is new to me today: No Emergency Visit: Yes ED Registration Date: 08/13/19 Care time: The patient presented to the Emergency Department on the above date and was hospitalized for further evaluation of their emergent condition. Critical Care patient: No - Discharge Referral Referred to [facility] No
== END 2019-08-15 13:00 | disposition home or self-care (01) | DRG 661 ==
LOC: FER 23:46 → FM/S 08-13 02:24 → UNDOADMIN 08-13 02:51 → J6S 08-13 17:40
PROVIDERS: ADMIT Internal Medicine; ATTEND Nurse Practitioner Family
PROC: 0T768DZ Dilation of Right Ureter with Intraluminal Device, Via Natural or Artificial Opening Endoscopic (ICD-10-PCS; principal; 2019-08-14 17:00)
PROC: 0TC68ZZ Extirpation of Matter from Right Ureter, Via Natural or Artificial Opening Endoscopic (ICD-10-PCS; 2019-08-14 17:00)
DX: N13.2 Hydronephrosis with renal and ureteral calculous obstruction (principal); F41.9 Anxiety disorder, unspecified; H40.9 Unspecified glaucoma; M19.90 Unspecified osteoarthritis, unspecified site; R10.31 Right lower quadrant pain
CPT/HCPCS: 36415; 74177-TC; 76000-TC-FY; 80048; 80053; 81003; 83690; 83735; 85025; 85610; 87040; 87086; 93005; 94760; 99285-25; J0131; J7030; Q9967

== ENCOUNTER 2021-03-03 17:35 | Emergency (ER) | payer OTHER, MEDICARE ==
[2021-03-03 17:54] VITALS: BP 145/94; PULSE 79; TEMP 99.3; BMI 34.5
[2021-03-03 18:59] LABS: MEAN PLT VOLUME 8.1 fl (7.5-11.1); RDW 13.5 % (11.6-15.6)
[2021-03-03 19:02] LABS: BASO % 1.6 % (0-2.0); HEMATOCRIT 40.3 % (32.4-45.2); HEMOGLOBIN 13.4 GM/dl (10.7-15.3); LYMPH % 28.6 % (8-40); MCH 28.6 pg (25.7-33.7); MCHC 33.2 g/dl (32.0-36.0); MEAN CELL VOLUME 86.2 fl (80-96); MONO % 5.8 % (3.8-10.2); PLATELET COUNT 169 10^3/uL (134-434); RBC 4.68 M/mm3 (3.60-5.2)
[2021-03-03 19:07] LABS: ALK PHOS 69 U/L (45-117); ANION GAP 10 MMOL/L (8-16); BILIRUBIN,TOTAL 0.6 mg/dl (0.2-1); CALCIUM 8.9 mg/dl (8.5-10); CHLORIDE 101 mmol/L (98-107); CO2 26 mmol/L (21-32); CREATININE 0.7 mg/dl (0.55-1.3); GLUCOSE,RANDOM 96 mg/dl (74-106); SGOT/AST 19 U/L (15-37); SGPT/ALT 15 U/L (13-61); SODIUM 137 mmol/L (136-145); TOT PROT 7.2 g/dl (6.4-8.2)
== END 2021-03-03 19:50 | disposition left against medical advice (07) ==
LOC: FER 17:35
DX: R06.00 Dyspnea, unspecified (principal); Z11.52 Encounter for screening for COVID-19
CPT/HCPCS: 36415; 80053; 84484; 85025; 85379; 93005; 99284-25; C9803; U0003; U0005

== ENCOUNTER 2021-07-24 13:58 | Emergency (ER) | payer OTHER, MEDICARE ==
[2021-07-24 14:03] VITALS: TEMP 97.8; BMI 38.0
[2021-07-24] MEDS ORDERED: ONDANSETRON *ODT* 4 MG TABLET SL ONE (14:30)
[2021-07-24] MEDS ORDERED: ONDANSETRON *ODT* 4 MG TABLET ONE (14:41)
[2021-07-24 15:19] LABS: ALBUMIN 3.8 g/dl (3.4-5.0); BILIRUBIN,TOTAL 0.8 mg/dl (0.2-1); CREATININE 0.8 mg/dl (0.55-1.3); TOT PROT 6.8 g/dl (6.4-8.2)
[2021-07-24 15:51] LABS: EOS % 1.7 % (0-4.5); HEMATOCRIT 39.1 % (32.4-45.2); HEMOGLOBIN 13.3 GM/dL (10.7-15.3); LYMPH % 23.6 % (8-40); MCH 28.5 pg (25.7-33.7); MCHC 33.9 g/dl (32.0-36.0); MEAN CELL VOLUME 83.9 fl (80-96); MEAN PLT VOLUME 8.4 fl (7.5-11.1); MONO % 6.8 % (3.8-10.2); NEUT % 66.9 % (42.8-82.8); PLATELET COUNT 200 10^3/uL (134-434); RBC 4.66 M/mm3 (3.60-5.2); RDW 14.4 % (11.6-15.6); WHITE BLOOD COUNT 6.1 K/mm3 (4.0-10.0)
[2021-07-24 16:17] VITALS: BP 140/83; PULSE 78
== END 2021-07-24 16:15 | disposition home or self-care (01) ==
LOC: FER 13:58
DX: R11.0 Nausea (principal); R63.0 Anorexia
CPT/HCPCS: 36415; 80053; 85025; 93005; 99284-25; Q0162

== ENCOUNTER 2021-08-03 08:52 | Day surgery (SDC) | payer OTHER, MEDICARE ==
[2021-07-31 14:02] VITALS: BMI 37.9
[2021-08-03] MEDS ORDERED: LIDOCAINE HCL/PF 2% SDV 5ML VIAL ONE (09:01)
[2021-08-03] MEDS ORDERED: PROPOFOL 20 ML ONE (09:01)
[2021-08-03 11:05] VITALS: TEMP 97.6
[2021-08-03 11:08] VITALS: BP 146/71; PULSE 74
== END 2021-08-03 11:05 | disposition home or self-care (01) ==
LOC: FASU-ENDO 08:52
PROVIDERS: ATTEND Internal Medicine Gastroenterology
PROC: 0DB78ZZ Excision of Stomach, Pylorus, Via Natural or Artificial Opening Endoscopic (ICD-10-PCS; 2021-08-03)
PROC: 0DB98ZX Excision of Duodenum, Via Natural or Artificial Opening Endoscopic, Diagnostic (ICD-10-PCS; principal; 2021-08-03 10:15)
DX: K29.80 Duodenitis without bleeding (principal); K29.70 Gastritis, unspecified, without bleeding; K31.7 Polyp of stomach and duodenum
CPT/HCPCS: 88305-TC; 88342-TC

== ENCOUNTER 2021-08-18 17:26 | Emergency (ER) | payer OTHER, MEDICARE ==
[2021-08-18 17:48] VITALS: BP 145/97; PULSE 91; TEMP 98.8; BMI 37.5
[2021-08-18 19:04] LABS: EPITHELIAL CELLS FEW /hpf
== END 2021-08-18 20:03 | disposition home or self-care (01) ==
LOC: FER 17:26
DX: R10.32 Left lower quadrant pain (principal)
CPT/HCPCS: 74177-TC; 81003; 81015; 87086; 99285-25; Q9967

== ENCOUNTER 2021-09-07 07:33 | Day surgery (SDC) | payer OTHER, MEDICARE ==
[2021-09-03 15:55] VITALS: BMI 37.2
[2021-09-07] MEDS ORDERED: LIDOCAINE HCL/PF 2% SDV 5ML VIAL ONE (07:47)
[2021-09-07] MEDS ORDERED: PROPOFOL 20 ML ONE ×4 (07:47)
[2021-09-07 08:03] VITALS: TEMP 97.8
[2021-09-07 09:18] VITALS: BP 146/78; PULSE 66
== END 2021-09-07 09:45 | disposition home or self-care (01) ==
LOC: FASU-ENDO 07:33
PROVIDERS: ATTEND Internal Medicine Gastroenterology
PROC: 0DJD8ZZ Inspection of Lower Intestinal Tract, Via Natural or Artificial Opening Endoscopic (ICD-10-PCS; principal; 2021-09-07 08:23)
DX: Z12.11 Encounter for screening for malignant neoplasm of colon (principal); K57.30 Diverticulosis of large intestine without perforation or abscess without bleeding; K64.1 Second degree hemorrhoids

== ENCOUNTER 2024-04-10 13:08 | Inpatient (IN) | payer OTHER, MEDICARE ==
[2024-04-10 16:03] LABS: INR 1.02 (0.83-1.09); PROTHROMBIN TIME (PATIENT) 11.6 SEC (9.7-13.0)
[2024-04-10 16:06] LABS: ACTIVATED PTT 29.3 SECONDS (25.2-36.5)
[2024-04-10 16:15] LABS: ALBUMIN 3.8 g/dl (3.4-5.0); BILIRUBIN,TOTAL 0.8 mg/dl (0.2-1); CREATININE 0.8 mg/dl (0.6-1.3); MAGNESIUM 2.1 mg/dL (1.8-2.4); POTASSIUM 3.1 mmol/L (3.5-5.1); TOT PROT 6.3 g/dl (6.4-8.2)
[2024-04-10] MEDS ORDERED: POTASSIUM CHLORIDE ORAL LIQUID 20 MEQ/15 ML ONE (16:46)
[2024-04-10] MEDS: POTASSIUM CHLORIDE ORAL LIQUID 20 MEQ/15 ML PO ONE (16:51)
[2024-04-10 17:42] LABS: HEMATOCRIT 47.7 % (32.4-45.2); HEMOGLOBIN 15.6 G/dL (10.7-15.3); MCH 28.7 pg (25.7-33.7); MCHC 32.6 g/dl (32.0-36.0); MEAN CELL VOLUME 87.8 fl (80-96); MEAN PLT VOLUME 9.8 fl (7.5-11.1); PLATELET COUNT 159.9 10^3/uL (134-434); RBC 5.43 10^6/uL (3.60-5.2); RDW 14.8 % (11.6-15.6); WHITE BLOOD COUNT 7.7 10^3/uL (4.0-10.8)
[2024-04-10 17:45] LABS: PLATELET ESTIMATE ADEQUATE
[2024-04-10 20:52] VITALS: BMI 32.5
[2024-04-11] MEDS ORDERED: MECLIZINE HCL 12.5 MG TABLET PO PRN (07:30)
[2024-04-11 08:35] LABS: ALBUMIN 3.7 g/dl (3.4-5.0); BILIRUBIN,TOTAL 0.8 mg/dl (0.2-1); CALCIUM 8.9 mg/dl (8.5-10.1); CREATININE 0.8 mg/dl (0.6-1.3); MAGNESIUM 2.2 mg/dL (1.8-2.4); POTASSIUM 3.3 mmol/L (3.5-5.1); TOT PROT 6.1 g/dl (6.4-8.2)
[2024-04-11 08:56] LABS: URINE MUCUS MODERATE
[2024-04-11] MEDS: DONEPEZIL HCL 10 MG TABLET (FP) PO SCH (09:12)
[2024-04-11] MEDS: SERTRALINE HCL 50 MG TABLET (FP) PO SCH (09:13)
[2024-04-11] MEDS: MEMANTINE HCL 10 MG TABLET (FP) PO SCH (09:13)
[2024-04-11] MEDS: POTASSIUM CHLORIDE ORAL LIQUID 20 MEQ/15 ML PO ONE (09:13)
[2024-04-11] MEDS: TIMOLOL 0.25% OPHTHALMIC SOL 5 ML BOTTLE OD SCH (09:16)
[2024-04-11] MEDS: SODIUM CHLORIDE 1,000 ML IV SCH (15:33)
[2024-04-12 08:12] LABS: HEMATOCRIT 42.7 % (32.4-45.2); HEMOGLOBIN 13.6 G/dL (10.7-15.3); MCH 27.6 pg (25.7-33.7); MCHC 31.8 g/dl (32.0-36.0); MEAN PLT VOLUME 9.7 fl (7.5-11.1); PLATELET COUNT 197.5 10^3/uL (134-434); RBC 4.91 10^6/uL (3.60-5.2); RDW 15.3 % (11.6-15.6); WHITE BLOOD COUNT 6.1 10^3/uL (4.0-10.8)
[2024-04-12 09:10] LABS: CALCIUM 8.8 mg/dl (8.5-10.1); CREATININE 0.8 mg/dl (0.6-1.3); MAGNESIUM 2.2 mg/dL (1.8-2.4); PHOSPHOROUS 2.7 (2.5-4.9); POTASSIUM 3.6 mmol/L (3.5-5.1)
[2024-04-12 14:33] VITALS: BP 119/75; PULSE 71; RESP 17; TEMP 97.7
== END 2024-04-12 15:25 | disposition home or self-care (01) | DRG 312 ==
LOC: FER 13:08 → FM/S 17:44
PROVIDERS: ADMIT Internal Medicine; ATTEND Internal Medicine
DX: I95.1 Orthostatic hypotension (principal); R29.6 Repeated falls; G20.A1 Parkinson's disease without dyskinesia, without mention of fluctuations; E86.0 Dehydration
CPT/HCPCS: 0241U-QW; 36415; 70450-TC; 70551-TC; 71046-TC-FY; 72125-TC; 80048; 80053; 81003; 81015; 82607; 82746; 83735; 83880; 84100; 84443; 84484; 85027; 85610; 85730; 87086; 93005; 97116-GP; 97162-GP; 99285-25